=== PATIENT | female | born 1965 | race Caucasian/White ===

== ENCOUNTER 2016-12-07 09:55 | Day surgery (SDC) | payer OTHER ==
[~2016-12-07 09:55] MED LIST: CLINDAMYCIN PHOSPHATE 900 MG in DEXTROSE 5 % IN WATER 100 ML IV PRN; RINGERS SOLUTION,LACTATED 1,000 ML IV PRN
--- OUTSIDE RECORDS SUMMARY | 2016-12-07 09:58 | XMS REPORT | Continuity of Care Document ---
:1965 Author Organization [facility] ([facility]) Address [address] [place] [address] Phone [phone] Care Team Providers Name Role Phone Unavailable Primary Care Provider Unavailable Source Comments This disclosure is being made pursuant to the Care Everywhere program, applicable federal and state laws, and may not contain all informaitonavailable regarding this patient.[facility] ([facility]) Active Allergies and Adverse Reactions Not on File Current Medications Not on file Active Problems Not on file Social History Tobacco Use Types Packs/Day Years Used Date Never Assessed Plan of Care Health Maintenance Due Date Last Done Comments HCV Screening 1965 Hepatitis B Vaccine (1 of 3 - Primary Series) 1965 Tdap Vaccine 1974 Lipid Disorder Screening 1981 MMR Vaccine 1981 Td Vaccine 1981 Cervical Cancer Screening 1993 Mammogram 2003 Colonoscopy 02/21/2013 Influenza Vaccine: Seasonal (#1) 04/23/2016 Results from Last 3 Months Not on file
[2016-12-07] MEDS ORDERED: RINGERS SOLUTION,LACTATED 1,000 ML IV ONE ×2 (10:30→12:05)
--- NOTE | 2016-12-07 12:49 | OR ---
Operative Report - Dictated Report Narrative: Date: 12/07/2016 Physician: Javier Rodas M.D. Layer Out Plate Glass: Sebastian Abernathy PA-C Preoperative diagnosis: Right Shoulder anterior labral tear, biceps tendinopathy Postoperative diagnosis: Right Shoulder anterior labral tear, partial thickness rotator cuff tear, biceps tendinopathy Procedure: Right shoulder arthroscopy with anterior labral repair, biceps tenodesis, partial thickness rotator cuff debridement Anesthesia: General plus regional Complications: None Estimated blood loss: Minimal Specimens: None Retained implants: [employer] 2.3 mm peek bio Raptor straight labral anchors 3, [employer] biceptor 7 mm x 25 mm peek biceps interference screw Drains: None Indications: Mrs. Martinez Is a 51 year-old female who has been followed in my clinic with complaints of shoulder pain consistent labral pathology. Physical exam and diagnostic imaging were consistent with his complaints and concern for labral tear. Conservative measures have failed including, but not limited to, passage of time, activity modification, medications, physical therapy/home exercise program, or injections. The risks, benefits, and alternatives were discussed in clinic. The risks being , bleeding, infection, blood clots, nerve, tendon, ligament, blood vessel injury, persistent pain, arthrosis, stiffness, need for prolonged therapy, need for additional procedures, and persistent symptoms. Consent was obtained in the clinic. Procedure: After marking the correct extremity in the preoperative holding area, a timeout was performed in the operating room. IV antibiotics consisting of clindamycin were administered prior to the procedure. A general followed by regional anesthetic was induced by the nurse seamstress fitter. This was in the supine position, then the patient was transitioned to a beachchair position with all bony prominences well-padded, head in neutral, the nonoperative arm well supported, and the legs padded with SCDs in place. The operative shoulder was then prepped and draped in a standard sterile fashion. Preoperatively the shoulder had full passive range of motion, and grade 1 anterior instability. After marking out the bony landmarks, saline was infused into the joint through a posterior lateral portal site. A leonel incision was made, and the blunt trocar and cannula was introduced into the shoulder joint. An accessory portal was placed in the rotator cuff interval using a spinal needle for guidance. Upon initial evaluation, the biceps tendon showed extra articular tendinopathy. The middle glenohumeral ligament was intact. Subscapularis tendon was and unremarkable. The glenoid showed no Bankart or arthrosis. The humeral head articular surface showed no Hill-Sachs or arthrosis. The anterior labrum was torn from the 12:00 to approximately the 5:00 positions. The superior labrum was intact behind the biceps. The pouch was unremarkable. The posterior labrum was frayed but intact. The supraspinatus tendon was was partially torn less than 25% on the articular side. The infraspinatus tendon was unremarkable. Utilizing an accessory anterior portal the biceps was tagged and transected as it inserted onto the labrum for tenodesis. The remaining biceps stump was debrided. The anterior labrum the anterior glenoid was also debrided. A rasp and elevator were utilized in order to mobilize labrum into the anterior portion of the glenoid. 3 anchors were placed at approximately the 1:00, 3:00, 4:00 positions. A suture shuttle device utilized in order to pass the suture around the labrum. These were tied from inferior to superior with the knots away from the joint stabilizing the anterior tissue and labrum providing a bumper to the anterior shoulder. This resulted in improved stability of the shoulder. The shaver was utilized in order to debride the rotator cuff tendon down to stable margin. Attention was then turned to the subacromial space. Subacromial bursectomy was performed utilizing the prior portals. The coracoacromial ligament was unremarkable. The bursal side of the rotator cuff demonstrated no tear. The acromial arch was unremarkable. Utilizing a 3 cm incision over the bicipital groove, blunt dissection was carried through the deltoid exposing the bicipital groove. The biceps tendon was mobilized out of the joint and the bicipital groove was rasped. The biceps measured out to a 7 mm tendon and a guidewire followed by acorn reamer followed by a tap followed by interference screw was placed after placing the tendon into the tunnel. This was done with the biceps in the normal naknek tension. The extra biceps tendon was then excised. The wounds were thoroughly irrigated. 0 Vicryl was utilized in order to repair the deltoid fascia. 3-0 Vicryl was placed in the subcutaneous tissue. The rotator cuff incision as well as the portal sites were closed with interrupted nylon. Dressings consisting of Xeroform, 4 x 4, ABD, soft roll, and tape were applied. All sponge, needle, blade, and instrument counts were correct prior to closing the wounds. The patient was awoken and transferred to the postanesthesia care unit in stable condition.
[2016-12-07 14:39] VITALS: BP 156/89
== END 2016-12-07 09:56 | disposition home or self-care (01) ==
LOC: AMB 09:55
PROVIDERS: ATTEND Orthopaedic Surgery
PROC: 0RBJ4ZZ Excision of Right Shoulder Joint, Percutaneous Endoscopic Approach (ICD-10-PCS; 2016-12-07)
PROC: 0LS30ZZ Reposition Right Upper Arm Tendon, Open Approach (ICD-10-PCS; 2016-12-07)
PROC: 0MM14ZZ Reattachment of Right Shoulder Bursa and Ligament, Percutaneous Endoscopic Approach (ICD-10-PCS; principal; 2016-12-07 13:00)
DX: S43.492A Other sprain of left shoulder joint, initial encounter (principal); M75.111 Incomplete rotator cuff tear or rupture of right shoulder, not specified as traumatic; M19.90 Unspecified osteoarthritis, unspecified site; J45.909 Unspecified asthma, uncomplicated; K21.9 Gastro-esophageal reflux disease without esophagitis; Z68.30 Body mass index [BMI] 30.0-30.9, adult